=== PATIENT | male | born 1995 | race Caucasian/White ===

== ENCOUNTER 2016-11-15 09:41 | Emergency (ER) | payer BC ==
[2016-11-15 09:59] VITALS: BP 121/55
--- NOTE | 2016-11-15 11:10 | UC ---
Skin Complaint HPI - HPI Summary HPI Summary: Noticed swollen, sensitive area on R scalp above ear approx 5 days ago. Area still inflamed, pt feels lymph nodes in neck and down to clavicle. Denies fever or drainage. - History of Current Complaint Chief Complaint: UCSkin Time Seen by Provider: 11/15/16 10:57 Stated Complaint: INSECT BITE Hx Obtained From: Patient Onset/Duration: Gradual Onset, Lasting Days Timing: Constant Onset Severity: Mild Current Severity: Mild Location: Discrete Character: Pain, Redness, Raised Aggravating: Touch Alleviating: Nothing Associated Signs & Symptoms: Positive: Tenderness Related History: Insect Bite/Sting - Allergy/Home Medications Allergies/Adverse Reactions: Allergies Allergy/AdvReac Type Severity Reaction Status Date / Time No Known Allergies Allergy Verified 05/20/13 15:41 Home Medications: Home Medications Cetirizine* [ZyrTEC 10 MG TAB*] 10 mg PO DAILY 11/15/16 [History Confirmed 11/15] Review of Systems Constitutional: Negative Skin: Rash - R scalp Eyes: Negative ENT: Negative Respiratory: Negative Cardiovascular: Negative Gastrointestinal: Negative Genitourinary: Negative Motor: Negative Neurovascular: Negative Musculoskeletal: Negative Neurological: Negative Psychological: Negative All Other Systems Reviewed And Are Negative: Yes PMH/Surg Hx/FS Hx/Imm Hx Previously Healthy: Yes - Surgical History Surgical History: Yes Surgery Procedure, Year, and Place: ADNOIDECTOMY, TUBES IN EARS - Family History Known Family History: Positive: Hypertension - Social History Occupation: Employed Full-time Lives: Alone Alcohol Use: Occasionally Substance Use Type: None Smoking Status (MU): Never Smoked Tobacco Physical Exam Triage Information Reviewed: Yes Appearance: Well-Appearing, No Pain Distress, Well-Nourished Vital Signs: Initial Vital Signs Temp 98.4 F 11/15/16 09:51 Pulse 86 11/15/16 09:51 Resp 16 11/15/16 09:51 BP 121/55 11/15/16 09:51 Pulse Ox 100 11/15/16 09:51 Vital Signs Reviewed: Yes Eye Exam: Normal Eyes: Positive: Conjunctiva Clear ENT Exam: Normal ENT: Positive: Normal ENT inspection, Hearing grossly normal, Pharynx normal, TMs normal Dental Exam: Normal Neck: Positive: Enlarged Nodes @ - R posterior cervical, R supraclavicular Respiratory Exam: Normal Respiratory: Positive: Chest non-tender, Lungs clear, Normal breath sounds, No respiratory distress, No accessory muscle use Cardiovascular Exam: Normal Cardiovascular: Positive: RRR, No Murmur Musculoskeletal Exam: Normal Neurological Exam: Normal Neurological: Positive: Alert Psychological Exam: Normal Skin Exam: Other - red, raised area approx 2cm round R scalp under hair above R ear Course/Dx - Diagnoses Provider Diagnoses: R scalp cellulitis. elevated blood pressure due to discomfort Discharge - Discharge Plan Condition: Stable Disposition: HOME Prescriptions: Sulfamethox/Trimethoprim DS* [Bactrim DS 800/160 TAB*] 1 tab PO BID #10 tab Patient Education Materials: Cellulitis (ED) Referrals: No Primary Care Phys,NOPCP [Primary Care Provider] - Additional Instructions: As we discussed, I expect your symptoms to improve within 2 days. If you are not improving, or if you are significantly worsening, please return or see your primary care provider.
== END 2016-11-15 11:09 | disposition home or self-care (01) ==
LOC: UCCORT 09:41
DX: L03.811 Cellulitis of head [any part, except face] (principal); R03.0 Elevated blood-pressure reading, without diagnosis of hypertension
CPT/HCPCS: 99202; G0463

== ENCOUNTER 2016-11-18 13:41 | Emergency (ER) | payer BC ==
[2016-11-18 13:59] VITALS: BP 108/68
--- NOTE | 2016-11-18 14:10 | UC ---
Skin Complaint HPI - HPI Summary HPI Summary: red sores/ rash on the right scalp/ right ear, + tender, + drainage no fever, no chills - History of Current Complaint Chief Complaint: UCEar Time Seen by Provider: 11/18/16 14:00 Stated Complaint: RIGHT EAR RECHECK Hx Obtained From: Patient Onset/Duration: Gradual Onset, Lasting Days - 5, Still Present Timing: Constant Onset Severity: Moderate Current Severity: Moderate Location: Ear (Right), Other - right scalp Character: Swelling, Pain Aggravating: Touch Alleviating: Nothing Associated Signs & Symptoms: Positive: Negative, Tenderness. Negative: Vomiting , Numbness, Thirst, Diaphoresis, Weakness, Fever, Chills - Allergy/Home Medications Allergies/Adverse Reactions: Allergies Allergy/AdvReac Type Severity Reaction Status Date / Time No Known Allergies Allergy Verified 11/18/16 13:50 Review of Systems Constitutional: Negative Skin: Rash Eyes: Negative ENT: Negative Respiratory: Negative All Other Systems Reviewed And Are Negative: Yes PMH/Surg Hx/FS Hx/Imm Hx Previously Healthy: Yes - Surgical History Surgical History: Yes Surgery Procedure, Year, and Place: ADNOIDECTOMY, TUBES IN EARS - Family History Known Family History: Positive: Hypertension - Social History Alcohol Use: Weekly Alcohol Amount: 1xweek Substance Use Type: Marijuana Substance Use Comment - Amount & Last Used: occasionally Smoking Status (MU): Never Smoked Tobacco - Immunization History Most Recent Influenza Vaccination: NONE 2015 Most Recent Tetanus Shot: UTD Most Recent Pneumonia Vaccination: N/A Physical Exam Triage Information Reviewed: Yes Appearance: Well-Appearing, No Pain Distress, Well-Nourished Vital Signs: Initial Vital Signs Temp 98.2 F 11/18/16 13:50 Pulse 80 11/18/16 13:50 Resp 16 11/18/16 13:50 BP 108/68 11/18/16 13:50 Pulse Ox 98 11/18/16 13:50 Vital Signs Reviewed: Yes Eyes: Positive: Conjunctiva Clear ENT: Positive: Normal ENT inspection, Hearing grossly normal, Pharynx normal Neck exam: Normal Neck: Positive: Supple, Nontender, No Lymphadenopathy Respiratory Exam: Normal Respiratory: Positive: Chest non-tender, Lungs clear, Normal breath sounds Cardiovascular: Positive: RRR, No Murmur, Pulses Normal Skin: Positive: rashes - visicular rash right scalp/ right ear , + erythema, tender Course/Dx - Diagnoses Provider Diagnoses: shingle Discharge - Discharge Plan Condition: Stable Disposition: HOME Prescriptions: ValACYclovir (*) [Valtrex 1 GM(*)] 1 gm PO TID #21 tab Patient Education Materials: Shingles (ED) Referrals: No Primary Care Phys,NOPCP [Primary Care Provider] - If Needed
== END 2016-11-18 14:16 | disposition home or self-care (01) ==
LOC: UCCORT 13:41
DX: B02.9 Zoster without complications (principal)
CPT/HCPCS: 99212; G0463